=== PATIENT | male | born 1995 | race Two or more races ===

== ENCOUNTER 2017-07-28 14:14 | Emergency (ER) | payer SELFPAY ==
[2017-07-28] MEDS: IBUPROFEN 600 MG TABLET. PO (16:13)
== END 2017-07-28 16:40 | disposition home or self-care (01) ==
LOC: ER 14:14
DX: R07.89 Other chest pain (principal); R05 Cough; F17.210 Nicotine dependence, cigarettes, uncomplicated; Z90.49 Acquired absence of other specified parts of digestive tract
CPT/HCPCS: 71046; 93005; 99284-25